=== PATIENT | female | born 1950 | race Caucasian/White ===

== ENCOUNTER 2018-07-22 06:03 | Day surgery (SDC) | payer BC ==
[2018-07-20 18:02] VITALS: BMI 22.2
[2018-07-22] MEDS ORDERED: BUPIVACAINE HCL/PF 0.5% (5MG/ML) 10 ML VIAL ONE (07:17)
[2018-07-22] MEDS ORDERED: LIDOCAINE HCL 1%, 10 MG/ML (20ML VIAL) ONE (07:17)
[2018-07-22] MEDS ORDERED: MIDAZOLAM HCL 2 MG/2 ML SINGLE DOSE VIAL ONE (07:54)
--- NOTE | 2018-07-22 08:18 | HP ---
Satellite [facility] - Chief Complaint Chief Complaint: right index finger pain History of Present Illness: right index finger trigger History Source: Patient Limitations to Obtaining History: No Limitations - Past Medical History Allergies/Adverse Reactions: Allergies Allergy/AdvReac Type Severity Reaction Status Date / Time No Known Allergies Allergy Verified 07/20/18 17:51 - Current Medications Current Medications: Home Medications Medication Instructions Recorded Amlodipine Besylate [Norvasc -] 10 mg PO DAILY 02/09/15 Atorvastatin Ca [Lipitor -] 20 mg PO HS 02/09/15 Clopidogrel Bisulfate [Plavix -] 75 mg PO DAILY 02/09/15 Metoprolol Succinate [Toprol Xl -] 50 mg PO BID 02/09/15 Aspirin [ASA -] 81 mg PO DAILY 07/20/18 Irbesartan 150 mg PO DAILY 07/20/18 Linagliptin [Tradjenta] 5 mg PO DAILY 07/20/18 Metformin HCl [Glucophage] 500 mg PO DAILY 07/20/18 Satellite Physical Exam - Physical Examination Vital Signs: Vital Signs Period Temp Pulse Resp BP Sys/López Pulse Ox Last 24 Hr 97.8 F-97.8 F 67-67 18-18 121-121/72-72 98 General Appearance: Well Nourished ENT: Clear Lung: Clear to auscultation Heart: Regular rate & rhythm Breasts: Soft Abdomen: Soft Extremities: No edema Satellite Impression/Plan - Impression/Plan Impression: right index finger trigger finger Operative Procedure: right index finger trigger release Date to be Performed: 07/22/18
[2018-07-22] MEDS ORDERED: ceFAZolin SODIUM 1 GM VIAL ONE (08:19)
[2018-07-22] MEDS ORDERED: PROPOFOL 20 ML ONE (08:27)
[2018-07-22] MEDS ORDERED: LIDOCAINE HCL 1%, 10 MG/ML (20ML VIAL) PNB ONE (08:30)
[2018-07-22] MEDS ORDERED: BUPIVACAINE HCL/PF 0.5% (5MG/ML) 10 ML VIAL IJ ONE (08:30)
[2018-07-22] MEDS ORDERED: oxyCODONE HCL 5 MG TABLET PO PRN (08:56)
[2018-07-22] MEDS ORDERED: ONDANSETRON 4 MG/2 ML VIAL IVPUSH PRN (08:56)
[2018-07-22] MEDS ORDERED: PROMETHAZINE HCL 25 MG/1 ML VIAL IVPUSH PRN (08:56)
--- NOTE | 2018-07-22 08:56 | OP ---
Operative Note - Note: Operative Date: 07/22/18 Pre-Operative Diagnosis: right index trigger finger Operation: right index finger trigger release, tendon sheath excision Post-Operative Diagnosis: Same as Pre-op Surgeon: Tani Metz Anesthesiologist/BALLROOM DANCE INSTRUCTOR: Trav Jolley Anesthesia: Local, MAC Specimens Removed: tendon sheath Estimated Blood Loss (mls): 0 Drains, Volume Out (mls): 0 Blood Volume Replaced (mls): 0 Fluid Volume Replaced (mls): 500 Operative Report Dictated: Yes
[2018-07-22] MEDS ORDERED: LACTATED RINGERS SOLUTION 1,000 ML IV SCH (09:00)
[2018-07-22] MEDS ORDERED: ONDANSETRON 4 MG/2 ML VIAL ONE (09:19)
--- NOTE | 2018-07-22 09:58 | SPEC ---
DATE OF OPERATION: 07/22/2018 PREOPERATIVE DIAGNOSIS: Right index finger trigger finger. POSTOPERATIVE DIAGNOSIS: Right index finger trigger finger. PROCEDURE: Right index finger trigger finger release and tendon sheath excision. SURGEON: Codey Cabrera MD ASSISTANTS: None. ANESTHESIOLOGIST: Trav Jolley MD ANESTHESIA: MAC anesthesia, local injection of 7 mL 0.5% Marcaine and 1% lidocaine mix. DRAINS: None. COMPLICATIONS: None. SPECIMEN: Tendon sheaths. BLOOD LOSS: None. BLOOD GIVEN: None. FLUID REPLACEMENT: Plasma-Lyte 500 mL. This patient is a 67-year-old female with a preoperative diagnosis of recurrent, painful and stiff right index finger trigger finger. After understanding the potential risks, complications, benefits, alternatives, benefits of the surgery vs. non-surgical treatment, the patient elected to undergo this procedure. PROCEDURE: The patient was brought to the operating room, IV was placed, IV sedation was given. One gram of intravenous Ancef given. A tourniquet was applied to the right upper arm and the right upper extremity was prepped and draped in sterile fashion. The entire case was done under 3.8 loupe magnification. A marking pen was utilized to traci out a longitudinal incision in an already existing skin crease at the base of the right index finger. Then 10 mL of 0.5% Marcaine mixed with 1% Lidocaine was injected in and around the incision. The right upper extremity was elevated, exsanguinated with an Esmarch bandage and the tourniquet inflated to 250 mmHg. A No. 15 scalpel blade was utilized to cut down through the skin. Subcutaneous hemostasis was achieved with the bipolar cautery. Additional dissection was done with Littler scissors until I was able to directly visualize the A1 erwin sheath in its entirety. Self-retaining retractors were placed into the wound. A free air elevator was used to free up the tissue on the radial side, the ulnar side distally and proximally under better visualization of A1 erwin sheath. Next, using a fresh No. 15 scalpel blade, I excised the central one-third of the A1 erwin sheath and passed it off the field as specimen, tendon sheath, right index finger. I then completed the release, both distally and proximally, and brought the FDS and FDP tendons out through the wound with a Ragnell retractor. There were no abnormal points of compression. I was able to move the right index finger without the tendons bunching up at all. The area was then copiously irrigated and washed out. I then checked one more time to make sure there were no abnormal points of compression. None were seen and therefore closure was begun. One stitch using 4-0 Vicryl was used in the deep dermal layer. Skin was reapproximated with 4-0 Nylon sutures in a horizontal mattress fashion. The area was then washed and dried, covered with Xeroform gauze, sterile 4x4s, fluffs between the fingers, Webril and Coban. The tourniquet was taken down after a total tourniquet time of 15 minutes. There were no complications during the case. The patient tolerated the procedure well and was brought to the Ambulatory recovery Room in stable condition. CODEY CABRERA M.D. [id number]
[2018-07-22 12:57] VITALS: BP 112/67; PULSE 67; TEMP 97.9
--- NOTE | 2018-07-23 21:00 | PATH ---
Surgical Pathology Report Patient Name: PALOMO HO [facility]. Rec. #: [id number] /Age/Gender: 1950 (Age: 67) / F Account: [id number] Location: [facility] SURGICAL Taken: 07/22/2018 Received: 07/22/2018 Reported: 07/23/2018 Physicians: Tani Metz M.D. Specimen(s) Received TENDON SHEATH Clinical History Right second finger trigger Final Diagnosis TENDON SHEATH, SECOND FINGER, RIGHT, TRIGGER FINGER RELEASE: BENIGN DENSE FIBROCONNECTIVE TISSUE. Electronically Signed Julia Spring M.D. Gross Description Received in formalin labeled "tendon sheath," is a 0.9 cm in greatest dimension silva soft tissue fragment. The specimen is submitted in toto in one cassette. /07/22/201807/22/2018
== END 2018-07-22 12:20 | disposition home or self-care (01) ==
LOC: JASU-SURG 06:03
PROVIDERS: ATTEND Orthopaedic Surgery
PROC: 0LN70ZZ Release Right Hand Tendon, Open Approach (ICD-10-PCS; principal; 2018-07-22 08:00)
DX: M65.321 Trigger finger, right index finger (principal)
CPT/HCPCS: 82962; 88304-TC; 94760

== ENCOUNTER 2019-01-28 18:13 | Emergency (ER) | payer BC, OTHER ==
[2019-01-28 18:23] VITALS: TEMP 98.2; BMI 22.6
--- NOTE | 2019-01-28 18:25 | PDOC ---
Rapid Medical Evaluation Medical Evaluation: Allergies Allergy/AdvReac Type Severity Reaction Status Date / Time No Known Allergies Allergy Verified 01/28/19 18:23 Vital Signs Temp Pulse Resp BP Pulse Ox 98.2 F 71 16 147/72 99 01/28/19 18:20 01/28/19 18:20 01/28/19 18:20 01/28/19 18:20 01/28/19 18:20 I have performed a brief in-person evaluation of this patient. The patient presents with a chief complaint of: c/o vertigo today worse with putting head down along with 3 episodes of emesis; hx of CAD s/p PCI x1; denies cp, numbness/tingling/weakness of extremities Pertinent physical exam findings: No nystagmus, no focal deficits I have ordered the following: Labs, EKG, meds The patient will proceed to the ED for further evaluation. 01/28/19 18:24
[2019-01-28] MEDS ORDERED: ONDANSETRON 4 MG/2 ML VIAL IVPUSH ONE (18:26)
[2019-01-28] MEDS ORDERED: SODIUM CHLORIDE 1,000 ML IV STA (18:26)
[2019-01-28] MEDS ORDERED: MECLIZINE HCL 25 MG TABLET (FP) PO ONE (18:26)
[2019-01-28 19:24] LABS: BASO % 0.6 % (0-2.0); EOS % 0.4 % (0-4.5); HEMATOCRIT 41.4 % (32.4-45.2); HEMOGLOBIN 13.9 GM/dL (10.7-15.3); LYMPH % 11.8 % (8-40); MCH 31.2 pg (25.7-33.7); MCHC 33.7 g/dl (32.0-36.0); MEAN CELL VOLUME 92.5 fl (80-96); MEAN PLT VOLUME 9.6 fl (7.5-11.1); MONO % 3.5 % (3.8-10.2); NEUT % 83.7 % (42.8-82.8); PLATELET COUNT 211 K/MM3 (134-434); RBC 4.47 M/mm3 (3.60-5.2); RDW 13.1 % (11.6-15.6); WHITE BLOOD COUNT 7.9 K/mm3 (4.0-10.0)
[2019-01-28 19:48] LABS: ALBUMIN 3.8 g/dl (3.4-5.0); BILIRUBIN,TOTAL 0.4 mg/dL (0.2-1); CALCIUM 9.5 mg/dL (8.5-10.1); CREATININE 0.7 mg/dL (0.55-1.3); POTASSIUM 3.9 mmol/L (3.5-5.1); TOT PROT 7.2 g/dl (6.4-8.2)
[2019-01-28] MEDS ORDERED: MECLIZINE HCL 25 MG TABLET (FP) ONE (20:51)
[2019-01-28] MEDS ORDERED: ONDANSETRON 4 MG/2 ML VIAL ONE (20:52)
--- NOTE | 2019-01-28 21:09 | PDOC ---
Documentation entered by Ileana Walter SCRIBE, acting as scribe for José Harden MD. José Harden MD: This documentation has been prepared by the Jose Angel epstein Adrianna, SCRIBE, under my direction and personally reviewed by me in its entirety. I confirm that the documentation accurately reflects all work, treatment, procedures, and medical decision making performed by me. History of Present Illness - General Chief Complaint: Lightheaded Stated Complaint: HIGH BLOOD PRESSURE Time Seen by Provider: 01/28/19 18:23 - History of Present Illness Initial Comments: The patient is a 68 year old female, with a significant PMH of hypertension, diabetes (pre-diabetic), NE, and CAD (s/p stent), who presents to the ED for evaluation of nausea, vomit, and dizziness since earlier today. Patient notes she developed nausea earlier this afternoon, followed by 3 episodes of NBNB vomit. She endorses associated room-spinning dizziness, that is exacerbated when getting up from a seated position, and right ear ringing. Patient notes similar symptoms in the past, which typically resolve within a few hours. Patient notes todays episode is persistent and worse than normal, prompting her visit to the ER. Denies chest pain, fever, diarrhea, sore throat, cough, sick contacts, or changes in vision. Allergies: NKA, NKDA Surgical History: Stent, hysterectomy Social History: Denies EtOH, tobacco, or illicit drug PCP: Dr. Schaffer Hardware Technician: Dr. Stevens Past History - Past Medical History Allergies/Adverse Reactions: Allergies Allergy/AdvReac Type Severity Reaction Status Date / Time No Known Allergies Allergy Verified 01/28/19 18:23 Home Medications: Ambulatory Orders Amlodipine Besylate [Norvasc -] 10 mg PO DAILY 02/09/15 Atorvastatin Ca [Lipitor -] 20 mg PO HS 02/09/15 Clopidogrel Bisulfate [Plavix -] 75 mg PO DAILY 02/09/15 Metoprolol Succinate [Toprol Xl -] 50 mg PO BID 02/09/15 Aspirin [ASA -] 81 mg PO DAILY 07/20/18 Irbesartan 150 mg PO DAILY 07/20/18 Linagliptin [Tradjenta] 5 mg PO DAILY 07/20/18 Metformin HCl [Glucophage] 500 mg PO DAILY 07/20/18 Hydrocodone/Acetaminophen [Hydrocodone-Acetamin 5-325 mg] 1 - 2 tab PO TID PRN # 15 tablet MDD 6 07/22/18 Cardiac Disorders: Yes (NE, stent placement) COPD: No Diabetes: Yes HTN: Yes Hypercholesterolemia: Yes - Surgical History Cardiac Surgery: Yes (cardiac stent) - Immunization History Immunization Up to Date: Yes - Suicide/Smoking/Psychosocial Hx Smoking History: Never smoked Hx Alcohol Use: No Drug/Substance Use Hx: No Substance Use Type: None Hx Substance Use Treatment: No Review of Systems - Review of Systems Comments:: GENERAL/CONSTITUTIONAL: No fever. No weakness. HEAD, EYES, EARS, NOSE AND THROAT: +Right ear ringing. No change in vision. No ear discharge. No sore throat. GASTROINTESTINAL: +Nausea. +3 episodes of NBNB vomit. No diarrhea or constipation. GENITOURINARY: No dysuria, frequency, or change in urination. CARDIOVASCULAR: No chest pain. RESPIRATORY: No cough, wheezing, or hemoptysis. MUSCULOSKELETAL: No joint or muscle swelling or pain. No neck or back pain. SKIN: No rash NEUROLOGIC: +Room-spinning dizziness. No headache, loss of consciousness, or change in strength/sensation. ENDOCRINE: No increased thirst. No abnormal weight change. HEMATOLOGIC/LYMPHATIC: No anemia, easy bleeding, or history of blood clots. ALLERGIC/IMMUNOLOGIC: No hives or skin allergy. *Physical Exam - Vital Signs Last Vital Signs Temp Pulse Resp BP Pulse Ox 98.2 F 71 16 147/72 99 01/28/19 18:20 01/28/19 18:20 01/28/19 18:20 01/28/19 18:20 01/28/19 18:20 - Physical Exam Comments: GENERAL: Awake, alert, and fully oriented, in no acute distress HEAD: No signs of trauma EYES: PERRLA, EOMI, sclera anicteric, conjunctiva clear. No horizontal nystagmus. ENT: +Dry mucous membranes. Auricles normal inspection, hearing grossly normal, nares patent, oropharynx clear without exudates. NECK: Normal ROM, supple, no lymphadenopathy, JVD, or masses LUNGS: Breath sounds equal, clear to auscultation bilaterally. No wheezes, and no crackles HEART: Regular rate and rhythm, normal S1 and S2, no murmurs, rubs or gallops ABDOMEN: Soft, nontender, normoactive bowel sounds. No guarding, no rebound. No masses EXTREMITIES: Normal range of motion, no edema. No clubbing or cyanosis. No cords , erythema, or tenderness BACK: No midline spinal tenderness in cervical/thoracic/lumbar region NEUROLOGICAL: Normal speech, cranial nerves intact, negative pronator drift, 5/ 5 strength in all 4 extremities, normal sensation to light touch in all 4 extremities, normal cerebellar exam, normal gait, normal reflexes and tone SKIN: Warm, Dry, normal turgor, no rashes or lesions noted. ED Treatment Course - LABORATORY CBC & Chemistry Diagram: 01/28/19 19:05 01/28/19 19:05 - ADDITIONAL ORDERS Additional order review: 01/28/19 19:05 RBC 4.47 MCV 92.5 MCHC 33.7 RDW 13.1 MPV 9.6 Neutrophils % 83.7 H D Lymphocytes % 11.8 D Monocytes % 3.5 L Eosinophils % 0.4 D Basophils % 0.6 Medical Decision Making - Medical Decision Making 01/28/19 21:08 Vomiting x 3 followed by dizziness and substernal burning chest pain normal vitals non tender abdomen symptoms persist Likely gastroenteritis however should consider ACS given prior stent EKG labs cardiac enzymes fluid pepcid zofran cxr reassess 01/28/19 22:36 Pt well appearing w/ normal vitals, no asymptomatic tolerating po steady gait return precautions given f/u pmd stable for discharge *DC/Admit/Observation/Transfer Diagnosis at time of Disposition: Gastroenteritis, Dizziness - Discharge Dispostion Disposition: HOME Condition at time of disposition: Stable Decision to Admit order: No - Referrals Referrals: Wilmar Schaffer MD [Primary Care Provider] - - Patient Instructions - Post Discharge Activity
[2019-01-28 21:47] VITALS: BP 132/71; PULSE 70
--- NOTE | 2019-01-30 09:08 | EKG ---
Test Reason : Blood Pressure : / mmHG Vent. Rate : 071 BPM Atrial Rate : 071 BPM P-R Int : 132 ms QRS Dur : 074 ms QT Int : 396 ms P-R-T Axes : 059 037 040 degrees QTc Int : 430 ms NORMAL SINUS RHYTHM POSSIBLE LEFT ATRIAL ENLARGEMENT BORDERLINE ECG WHEN COMPARED WITH ECG OF 09-FEB-2015 13:53, T WAVE INVERSION NOW EVIDENT IN ANTERIOR LEADS Confirmed by DAVID MORALES MD ([id number]) on 01/30/2019 9:08:12 AM Referred By: Confirmed By:DAVID MORALES MD
== END 2019-01-28 22:55 | disposition home or self-care (01) ==
LOC: JER 18:13
PROC: 3E0337Z Introduction of Electrolytic and Water Balance Substance into Peripheral Vein, Percutaneous Approach (ICD-10-PCS; principal; 2019-01-28)
DX: K52.9 Noninfective gastroenteritis and colitis, unspecified (principal); R42 Dizziness and giddiness; I25.10 Atherosclerotic heart disease of native coronary artery without angina pectoris; I10 Essential (primary) hypertension; I25.2 Old myocardial infarction; Z95.1 Presence of aortocoronary bypass graft; E11.9 Type 2 diabetes mellitus without complications; Z79.84 Long term (current) use of oral hypoglycemic drugs; E78.00 Pure hypercholesterolemia, unspecified
CPT/HCPCS: 36415; 80053; 84484; 85025; 93005; 93010; 99284-25; J7030